=== PATIENT | female | born 1950 | race African-American/Black ===

== ENCOUNTER 2019-08-14 12:23 | Inpatient (IN) | payer OTHER ==
[~2019-08-14] VITALS: Ht 167.6 cm; Wt 77.1 kg
[2019-08-14 12:46] VITALS: BP 131/61
[2019-08-14] MEDS ORDERED: CELEBREX 200 M200 M1 PO (13:03)
[2019-08-14] MEDS ORDERED: AMITRIPTYLINE H25 M3 PO (13:04)
[2019-08-14 13:35] LABS: ABSOLUTE NEUTROPHILS 3.9 thou/uL (1.4-8.2); BASOPHILS 0.7 % (0.0-2.0); EOSINOPHILS 0.1 % (0.0-3.0); HEMATOCRIT 34.2 % (37.0-47.0); HEMOGLOBIN 11.5 gm/dL (12.0-15.0); LYMPHOCYTES 12.1 % (24.0-44.0); MCHC 33.7 g/dL (28.0-37.0); MONOCYTES 8.5 % (1.0-8.0); PLATELET COUNT 190 thou/uL (150-400); POLYS 78.6 % (36.0-66.0); RBC 4.13 mil/uL (4.20-5.00)
[2019-08-14 13:43] LABS: ANION GAP 8 mmol/L (7-16); BUN 12 mg/dL (7-18); CALCIUM 8.2 mg/dL (8.5-10.1); CHLORIDE 97 mmol/L (98-107); CO2 29 mmol/L (21-32); CREATININE 0.9 mg/dL (0.6-1.0); GLUCOSE 102 mg/dL (74-106); POTASSIUM 3.4 mmol/L (3.5-5.1); SODIUM 134 mmol/L (136-145)
[2019-08-14 13:51] LABS: MAGNESIUM 1.9 mg/dL (1.8-2.4); TROPONIN-I <0.06 ng/mL (<0.06)
[2019-08-14 14:32] VITALS: BP 124/59
--- NOTE | 2019-08-14 16:05 | NUR ---
PT REQUESTED TISHIAndrew GET A SUITCASE OUF HER TRUNK. ELENA WAS PROVIDED WITH THE PT'S CAR KEYS.
[2019-08-14 16:07] VITALS: BP 126/61
[2019-08-14 17:30] VITALS: BP 124/60
--- NOTE | 2019-08-14 18:07 | NUR ---
ASSUMED CARE OF PT UPON ARRIVAL TO UNIT AT APPROX 1730. PT ALERT AND ORIENTED, IN NO ACUTE DISTRESS. COUGHING FREQUENTLY. UP AD SERAFIN. VITALS STEADY. TMAX 99.1. REPORTS DIARHEA. CALLS OUT APPROPRIUATELY. IV ABX/MAINTENANCE FLUIDS INFUSING PER ORDER.
[2019-08-14 19:45] VITALS: BP 121/71
--- NOTE | 2019-08-14 20:45 | NUR ---
PT COVID RESULT CAME BACK POSITIVE 08/13 2029. SAMPLES AND REPAIRS PREPARER AND HYDROTREATER OPERATOR NOTIFIED.
[2019-08-14 23:55] VITALS: BP 129/70
[2019-08-15 04:26] LABS: HEMATOCRIT 32.6 % (37.0-47.0); HEMOGLOBIN 10.9 gm/dL (12.0-15.0); MCHC 33.4 g/dL (28.0-37.0); MCV 83.8 fL (80.0-100.0); RBC 3.89 mil/uL (4.20-5.00); WBC 4.7 thou/uL (4.0-11.0)
[2019-08-15 04:48] LABS: CALCIUM 7.6 mg/dL (8.5-10.1); CREATININE 0.8 mg/dL (0.6-1.0); POTASSIUM 3.5 mmol/L (3.5-5.1)
--- NOTE | 2019-08-15 06:19 | NUR ---
PT O2 STATS ON ROOM AIR ARE AT 90%. RECEIVED ORDER FOR TYLENOL FOR HEADACHE PER PT REQUEST AND ALSO RECEIVED ORDER FOR GUAIFEN FOR COUGH. PT HAS NONE PRODUCTIVE COUGH. FOLLOWING POC WITH IVF GTT. HOURLY ROUNDING.
--- NOTE | 2019-08-15 08:07 | EKG ---
[facility] [place] [address] ELECTROCARDIOGRAM REPORT Name: TAIWO MÁRQUEZ Room #: 354-P ADM IN M.R.#: [id number] Admission: 08/14/19 Attend Phys: Andrei Worley MD Discharge: Date of : 46 Report #: [id number] THIS REPORT FOR: cc: Tobin Barber MD, George S. MD Lundgren,Miguel Angel Davis MD [facility] THIS REPORT FOR: //name// [facility] ED Test Date: 2019-08-14 Test Time: 13:14:10 Pat Name: TAIWO MÁRQUEZ Department: Room: [facility] Gender: F Lay Out Carpenter: [place] : 1950 Requested By: Yuri Woodall Order Number: [id number] MD: Miguel Angel Dixon Measurements Intervals [place] Rate: 88 P: -18 NE: 148 QRS: -21 QRSD: 90 T: 43 QT: 366 QTc: 443 Interpretive Statements Sinus rhythm No significant abnormality No previous ECG available for comparison Electronically Signed On 08-15-2019 8:05:51 CDT by Miguel Angel Dixon [email or web address] <ELECTRONICALLY SIGNED> By: Miguel Angel Dixon MD, [facility] 05/804 1314 Miguel Angel Dixon MD, [facility] /EPI
[2019-08-15 08:34] VITALS: BP 146/81
--- NOTE | 2019-08-15 11:57 | NUR ---
INITIAL ASSESSMENT: SW reviewed chart and spoke with nursing and attending physician. Pt was admitted from home due to shortness of air/fevers. Pt is in Enhanced Isolation. Pt's COVID-19 test is positive. Pt with exposure to family with COVID-19. ID consulted. SW spoke with pt via phone. Introduced role of SW. Pt appears to be alert/orientated x 4. Pt reports she lives at home with her . Prior to admission, pt was independent with ADLs. No use of DME. Pt does do breathing treatments at home. Pt's PCP is Dr. Irma Mina. No hx of services or post-acute placement. Plan is for pt to discharge home when medically stable. SW is following to assist as needed with discharge planning.
--- NOTE | 2019-08-15 12:21 | NUR ---
NO ACUTE DISTRESS. STILL COUGHING. COMPLAINS OF HEADACHE. TMAX 99.3. VITALS STABLE. VOICING NO CONCERNS AT THIS TIME.
[2019-08-15 20:20] VITALS: BP 115/65
--- NOTE | 2019-08-15 21:08 | NUR ---
PT STARTED ON IVPB REMDESIVIR. EDUCATED PT ON MEDICATION USING PHARMACY DRUG HANDOUT, INCLUDING RISKS AND BENEFITS, ALTERNATIVE TREATMENTS, AND EMERGENCY AUTHORIZATION TO USE THIS DRUG. PT ACCEPTED USE OF THIS TREATMENT AND IT WAS STARTED AT 1999.
[2019-08-16 03:43] VITALS: BP 129/60
[2019-08-16 04:58] LABS: ABSOLUTE NEUTROPHILS 2.8 thou/uL (1.4-8.2); BASOPHILS 0.4 % (0.0-2.0); EOSINOPHILS 1.2 % (0.0-3.0); HEMATOCRIT 33.6 % (37.0-47.0); HEMOGLOBIN 11.2 gm/dL (12.0-15.0); MCH 28.2 pg (26.0-34.0); MCHC 33.3 g/dL (28.0-37.0); MCV 84.8 fL (80.0-100.0); MONOCYTES 9.2 % (1.0-8.0); PLATELET COUNT 227 thou/uL (150-400); POLYS 70.2 % (36.0-66.0); RBC 3.96 mil/uL (4.20-5.00); RDW 13.2 % (10.5-14.5)
[2019-08-16 05:14] LABS: D-DIMER 1.05 ug/mLFEU (0.19-0.50); PROTIME 10.5 Seconds (9.3-11.4)
[2019-08-16 05:19] LABS: FIBRINOGEN 629.1 mg/dL (210-360)
[2019-08-16 05:29] LABS: ALBUMIN 2.4 g/dL (3.4-5.0); CALCIUM 7.7 mg/dL (8.5-10.1); CREATININE 0.9 mg/dL (0.6-1.0); POTASSIUM 3.4 mmol/L (3.5-5.1); TOTAL BILIRUBIN 0.2 mg/dL (0.2-1.0); TOTAL PROTEIN 6.4 g/dL (6.4-8.2)
--- NOTE | 2019-08-16 06:17 | NUR ---
ASSUMED CARE AT 1900. PT C/O PERSISTENT DRY COUGH THAT KEEPS HER AWAKE; HAVE GIVEN COUGH SYRUP TWICE OVERNIGHT. REPORTED HEADACHE AND MID BACK PAIN, GAVE TYLENOL ONCE FOR RELIEF. PT IS EASILY SOB WITH ACTIVITY, BUT IS SATTING MID-HIGH 90'S ON RA. NO TEMPS OVERNIGHT, BUT STILL HAS SOME TREMORS. IVF INFUSING OVERNIGHT. NO OTHER CONCERNS, WILL CONTINUE TO MONITOR.
[2019-08-16 10:06] VITALS: BP 131/81
--- NOTE | 2019-08-16 16:08 | NUR ---
Assumed pt care this am, VS stable pt is up ad luna and steady on her gait. Pt verbalized she could not sleep due to cough, pt mentioend she feels this is postnasal drip and requested for medication that is different from what she is getting since this does not work. Vitamins, protein drink and snacks came from the and was delivered to the ER. Medication are approved to be taken as per Dr. Worley, validated by pharmacy and is at the bedside. 1 medication whic pt takes every 5 weeks (hormone shot) is at the pt's bin. Inforemd Dr. Worley as per pharmacy we cannot restart the medecation even if it is a 1 time dose since this goes against policy. Informed Dr. Worley awaiting for advise, currently medication is in the medication bin, pt is ok to have family supervisor opening and picking the medication if not approved. Pt has had several loose stools informed dr. Worley. Pt is up ad luna with no signs or verbalizations of distress noted. POC being followed.
[2019-08-16 17:54] VITALS: BP 144/74
[2019-08-16 20:46] VITALS: BP 146/84
[2019-08-17 04:21] VITALS: BP 139/81
--- NOTE | 2019-08-17 06:08 | NUR ---
ASSUMED CARE AT 1900, ASSESSMENT COMPLETED. PT CONTINUED TO HAVE DRY COUGH, MINIMAL SPUTUM PRODUCTION BUT WAS ABLE TO GET A SMALL AMOUNT FOR A LAB SPECIMEN. REPORTS HEADACHE EXACERBATED BY COUGH. GAVE TYLENOL TWICE AND TESSALON ONCE. REPORTS THREE SMALL, RUNNY STOOLS OVERNIGHT. NO OTHER CONCERNS, WILL CONTINUE TO MONITOR.
[2019-08-17 08:25] LABS: ABSOLUTE NEUTROPHILS 5.1 thou/uL (1.4-8.2); BASOPHILS 0.3 % (0.0-2.0); EOSINOPHILS 1.6 % (0.0-3.0); HEMATOCRIT 35.4 % (37.0-47.0); LYMPHOCYTES 11.9 % (24.0-44.0); MCH 28.4 pg (26.0-34.0); MCHC 33.9 g/dL (28.0-37.0); MCV 83.7 fL (80.0-100.0); MONOCYTES 8.3 % (1.0-8.0); POLYS 77.9 % (36.0-66.0); RBC 4.23 mil/uL (4.20-5.00); RDW 13.1 % (10.5-14.5); WBC 6.5 thou/uL (4.0-11.0)
[2019-08-17 08:26] LABS: CALCIUM 8.1 mg/dL (8.5-10.1); CREATININE 0.8 mg/dL (0.6-1.0); POTASSIUM 3.3 mmol/L (3.5-5.1)
[2019-08-17 08:29] LABS: PLATELET COUNT 309 thou/uL (150-400)
[2019-08-17 09:36] VITALS: BP 122/64
[2019-08-17 16:56] VITALS: BP 155/80
--- NOTE | 2019-08-17 17:49 | NUR ---
ASSUMED PATIENT CARE AT 0700. A/O X4. FEVER. VSS. DRY COUGH. SLOLWY TOWARDS POC GOALS.
[2019-08-17 20:22] VITALS: BP 139/78
[2019-08-18 03:32] VITALS: BP 127/77
[2019-08-18 05:00] LABS: CALCIUM 7.9 mg/dL (8.5-10.1); CREATININE 0.7 mg/dL (0.6-1.0); MAGNESIUM 1.9 mg/dL (1.8-2.4); POTASSIUM 3.3 mmol/L (3.5-5.1)
--- NOTE | 2019-08-18 05:56 | NUR ---
ASSUMED CARE AT 1900, ASSESSMENT COMPLETED. PT REPORTS IMPROVED BREATHING WITH LESS SOA, STILL WITH A DRY COUGH BUT STATES THE TESSALON PEARLS HAVE HELPED. LUNG SOUND ARE IMPROVED COMPARED TO PREVIOUS SHIFT. REPORTED UPPER BACK PAIN, GAVE TYLENOL ONCE. OBTAINED ORDER FOR ONE TIME DOSE OF ORAL POTASSIUM AT HS WITH LABS IN AM. NO OTHER CONCERNS, WILL CONTINUE TO MONITOR.
[2019-08-18 07:57] VITALS: BP 145/85
--- NOTE | 2019-08-18 11:36 | NUR ---
SW reviewed chart and spoke with nursing and attending physician. Pt is in Enhanced Isolation due to COVID-19. Pt has been afebrile today. Pt is progressing towards goals for discharge. Discharge home is anticipated for tomorrow. SW is following to assist as needed with discharge planning.
[2019-08-18 17:37] VITALS: BP 140/84
--- NOTE | 2019-08-18 18:18 | NUR ---
ASSUMED PATIENT CARE AT 0700. A/O X4. PLEASANT. DRY COUGH WITH TEMP. UP AD SERAFIN. PROGRESSING TOWARDS POC GOALS.
[2019-08-18 20:06] VITALS: BP 150/85
[2019-08-19] VITALS (7 sets, daily range): BP systolic 121–145; BP diastolic 70–80
--- NOTE | 2019-08-19 04:23 | NUR ---
Patient making slow progress towards outcome. Vital signs stable. Afebrile.Oxygenation optimal on room air. Short of breath with activity. Cough mostly non productive, has started to cough up small thick yelloe sputum. Denies pain. Up adlib, gait steady.
[2019-08-19 08:27] LABS: ALBUMIN 2.4 g/dL (3.4-5.0); CALCIUM 8.1 mg/dL (8.5-10.1); CREATININE 0.8 mg/dL (0.6-1.0); POTASSIUM 3.6 mmol/L (3.5-5.1); TOTAL BILIRUBIN 0.2 mg/dL (0.2-1.0); TOTAL PROTEIN 6.5 g/dL (6.4-8.2)
--- NOTE | 2019-08-19 13:41 | NUR ---
SW reviewed chart and spoke with nursing and attending physician. Pt remains in Enhanced Isolation due to COVID-19. Pt is progressing towards goals for discharge. Discharge home is anticipated for tomorrow. SW is following to assist as needed with discharge planning.
--- NOTE | 2019-08-19 15:28 | NUR ---
PT IS A&OX3, PT IS ON ISOLATION FOR POSITIVE COVID, PT STILL HAS COUGHING, SOB WITH ACTIVITIES, PT'S VS ARE STABLE AT THIS TIME, PT GETS UP TO USE BSC, PT DENIES PAIN AND N/V AT THIS TIME.
--- NOTE | 2019-08-19 21:04 | NUR ---
UPON INITIAL ASSESSMENT, PT'S LUNG SOUNDS WERE CRACKLY ON THE R SIDE AND CLEAR ON THE LEFT. PT WAS VERY PLEASANT, DID COMPLAIN OF THE REOCCURING HEADACHE, TYLENOL WAS PROVIDED. PT WAS UP AD SERAFIN AND VERY MOBILE. PT WAS AOX4 AND WAS CLEARLY DOING WELL AT THIS POINT. PT WANTED HER TEMPERATURE TO BE RETAKEN AND TEMP WAS 98.5F. COLD WATER WAS PROVIDED PER REQUEST, AND CALL LIGHT WAS WITHIN REACH. NO REQUESTS AT THIS TIME AND STATED THAT SHE WILL BE SLEEPING ALL NIGHT. WILL CHECK UP ON HER PERIODICALLY TO ENSURE SAFETY.
[2019-08-20 08:32] VITALS: BP 126/75
[2019-08-20 12:00] VITALS: BP 120/80
[2019-08-20] MEDS ORDERED: BENZONATATE100 MG PO (13:21)
[2019-08-20] MEDS ORDERED: IPRAT-ALBUT 0.5-3 ML INH (13:21)
[2019-08-20 13:27] VITALS: BP 126/75
--- NOTE | 2019-08-20 13:39 | NUR ---
DISCHARGE NOTE: SW reviewed chart and spoke with nursing and attending physician. Pt is medically stable for discharge home today. No discharge needs identified at this time. Pt's family to provide transportation home. SW is available to assist should needs arise.
--- NOTE | 2019-08-20 14:01 | NUR ---
PT IS A&OX3, PT'S VS ARE STABLE, PT DOES NOT FEVER AND SOB, BUT PT STILL HAVE COUGHING, PT IS CONTINUING ISOLATION FOR POSITIVE COVID, RN HAS RECEIVED ORDER TO DC PT TO HOME TODAY.
--- NOTE | 2019-08-20 16:10 | NUR ---
RN HAS GIVING DC TEACHING , INCLUDING NEW MEDICATIONS AND ISOLATION FOR COVID PT, PT UNDERSTANDS WELL , PT HAS N95 MASK AND GO HOME AT 1430PM.
== END 2019-08-20 15:00 | disposition home or self-care (01) | DRG 177 ==
LOC: ER 12:23 → EROBS 14:59 → 3W 14:59
PROVIDERS: Emergency Medicine; Internal Medicine Infectious Disease; Nurse Practitioner Family; Specialist; ADMIT Hospitalist
DX: U07.1 COVID-19 (principal); J12.89 Other viral pneumonia; J45.909 Unspecified asthma, uncomplicated; G35 Multiple sclerosis; Z81.8 Family history of other mental and behavioral disorders; Z88.6 Allergy status to analgesic agent; Z90.710 Acquired absence of both cervix and uterus; Z79.899 Other long term (current) drug therapy
CPT/HCPCS: 10080; 10879